=== PATIENT | female | born 1990 | race Caucasian/White ===

== ENCOUNTER 2021-11-20 06:58 | Inpatient (IN) | payer MEDICAID ==
[~2021-11-20] VITALS: Ht 160 cm; Wt 72.6 kg
[2021-11-20] MEDS ORDERED: METHYLERGONOVINE MALEATE 0.2 MG/ML AMP IM PRN ×2 (07:30→08:45)
[2021-11-20] MEDS ORDERED: WITCH HAZEL-GLYCERIN PAD TOP PRN (07:30)
[2021-11-20] MEDS ORDERED: miSOPROStol 100 mcg TAB PR PRN ×2 (07:30→08:45)
[2021-11-20] MEDS ORDERED: LIDOCAINE 2%HCL (LOCAL ANESTH.) INJ 10ml MDV IJ PRN (07:30)
[2021-11-20] MEDS ORDERED: DERMOPLAST 60ML BOTTLE TOP PRN (07:30)
[2021-11-20] MEDS ORDERED: LACTATED RINGER'S 1,000 ML IV SCH (07:30)
[2021-11-20] MEDS ORDERED: miSOPROStol 100 mcg TAB SL PRN ×2 (07:30→08:45)
[2021-11-20 08:33] LABS: Basophils # (auto) 0.1 10 ^3/uL (0-0.2); Eosinophils # (auto) 0 10 ^3/uL (0-0.8)
[2021-11-20 08:35] LABS: Basophils % (auto) 0.3 % (0.0-2.0); Eosinophils % (auto) 0.3 % (0.0-7.0); Hematocrit 30.6 % (36.0-46.0); Hemoglobin 9.7 g/dL (12.2-16.2); Lymphocytes # (auto) 1.9 10 ^3/uL (0.4-5.4); Lymphocytes % (auto) 10.2 % (10.0-50.0); Mean Corpuscular Hemoglobin 26.6 pg (28.0-32.0); Mean Corpuscular Hgb Conc. 31.5 g/dL (32.0-36.0); Mean Corpuscular Volume 84.5 fL (80.0-100.0); Monocytes % (auto) 5.6 % (0.0-12.0); Neutrophils # (auto) 15.5 10 ^3/uL (1.6-8.6); Neutrophils % (auto) 83.6 % (37.0-80.0); Red Blood Cells 3.63 10^6/uL (4.0-5.20); Red Cell Distribution Width 15.7 % (11.8-14.3); White Blood Cell 18.5 10^3/uL (4.4-10.8)
[2021-11-20] MEDS ORDERED: LACT. RINGERS/OXYTOCIN 20UNITS 500 ML IV ONE ×2 (08:45→09:15)
[2021-11-20] MEDS ORDERED: ceFAZolin 2 GM in D5W 5% 100 ML IV ONE (08:45)
[2021-11-20] MEDS ORDERED: METHYLERGONOVINE MALEATE 0.2 MG/ML AMP IM ONE (08:45)
[2021-11-20] MEDS ORDERED: ACETAMINOPHEN 325 MG TAB PO PRN (08:45)
[2021-11-20] MEDS ORDERED: ONDANSETRON ODT 4 MG TAB PO PRN (08:45)
[2021-11-20] MEDS ORDERED: ONDANSETRON HCL 4 MG/2 ML VIAL IV PRN (08:45)
[2021-11-20 08:46] LABS: INR 0.98 (0.9-1.15); Partial Thromboplastin Time 21.4 sec (24.6-33.4)
[2021-11-20 08:50] LABS: Albumin 2.4 g/dL (3.4-5.0); Calcium 8.2 mg/dL (8.5-10.1); Potassium 3.8 mmol/L (3.5-5.1)
[2021-11-20 08:53] LABS: BUN/Creatinine Ratio 10.4; Bilirubin, Total 0.3 mg/dL (0.2-1.0)
[2021-11-20 09:00] VITALS: BP 139/90
[2021-11-20] MEDS: PHISODERM TOP SOLN 240ML BTL TOP PRN (09:11)
[2021-11-20 10:00] VITALS: BP 128/57
[2021-11-20] MEDS ORDERED: SODIUM CHL 0.9% 1000 ML BAG IV SCH (10:00)
[2021-11-20] MEDS ORDERED: LACT. RINGER'S W OXYTOCIN 20UNITS/1000 ML IV SCH (10:00)
[2021-11-20] MEDS: DOCUSATE CALCIUM 240 MG CAP PO SCH (10:08)
[2021-11-20] MEDS: IBUPROFEN 600 MG TAB PO PRN ×2 (10:08→21:02)
[2021-11-20] MEDS: ceFAZolin 1GM/50ML 50 ML IV SCH ×2 (13:38→21:45)
[2021-11-20 14:08] LABS: Urine Bacteria FEW /hpf (None Seen); Urine Blood 3+ /uL (Negative); Urine Mucus FEW (None Seen); Urine Specific Gravity 1.022 (1.001-1.035); Urine WBC 9 /hpf (0 - 5)
[2021-11-20 14:21] LABS: Amphetamine Screen, Urine NEGATIVE (NEGATIVE); Barbiturate Scree,Urine NEGATIVE (NEGATIVE); Benzodiazephine Screen, Urine NEGATIVE (NEGATIVE); Cannabinoid Screen, Urine POSITIVE (NEGATIVE); Cocaine Screen, Urine NEGATIVE (NEGATIVE); Opiate Scree,Urine NEGATIVE (NEGATIVE); Phencyclidine Screen, Urine NEGATIVE (NEGATIVE)
[2021-11-20] MEDS: ACETAMINOPHEN 325 MG TAB PO PRN ×2 (14:56→21:49)
[2021-11-20 15:00] VITALS: BP 121/83
[2021-11-20 19:30] VITALS: BP 115/83
[2021-11-20] MEDS: DOCUSATE SOD 100 MG CAP PO SCH (21:46)
[2021-11-20 22:30] VITALS: BP 97/55
[2021-11-21 03:00] VITALS: BP 117/64
[2021-11-21 06:30] VITALS: BP 111/65
[2021-11-21 07:07] LABS: RPR Non Reactive (Non Reactive); Rubella Antibodies, IgG 5.13 index (Immune >0.99)
[2021-11-21] MEDS: IBUPROFEN 600 MG TAB PO PRN (07:32)
[2021-11-21] MEDS: DOCUSATE CALCIUM 240 MG CAP PO SCH (07:33)
[2021-11-21] MEDS: ceFAZolin 1GM/50ML 50 ML IV SCH (07:33)
[2021-11-21 08:27] LABS: Basophils # (auto) 0 10 ^3/uL (0-0.2); Basophils % (auto) 0.3 % (0.0-2.0); Eosinophils # (auto) 0.1 10 ^3/uL (0-0.8); Eosinophils % (auto) 0.7 % (0.0-7.0); Hematocrit 21.7 % (36.0-46.0); Hemoglobin 7.2 g/dL (12.2-16.2); Lymphocytes # (auto) 1.9 10 ^3/uL (0.4-5.4); Mean Corpuscular Hemoglobin 27.1 pg (28.0-32.0); Monocytes # (auto) 0.9 10 ^3/uL (0-1.3); Red Blood Cells 2.64 10^6/uL (4.0-5.20)
[2021-11-21 08:29] LABS: Lymphocytes % (auto) 21.3 % (10.0-50.0); Mean Corpuscular Hgb Conc. 33.1 g/dL (32.0-36.0); Monocytes % (auto) 10.1 % (0.0-12.0); Neutrophils % (auto) 67.6 % (37.0-80.0); Red Cell Distribution Width 15.5 % (11.8-14.3); White Blood Cell 8.9 10^3/uL (4.4-10.8)
[2021-11-21] MEDS: FERROUS SULFATE 325mg EC TAB PO SCH ×2 (08:33→18:30)
[2021-11-21 11:30] VITALS: BP 117/76
[2021-11-21 15:00] VITALS: BP 139/72
[2021-11-21 19:20] VITALS: BP 112/64
[2021-11-21] MEDS ORDERED: diphenhdrAMINE HCL 25 MG CAP PO ONE (19:30)
[2021-11-21] MEDS ORDERED: TEMAZEPAM 15 MG CAP PO ONE ×2 (22:15→22:30)
[2021-11-21] MEDS: DOCUSATE SOD 100 MG CAP PO SCH (22:36)
[2021-11-21 23:20] VITALS: BP 108/61
[2021-11-22 03:10] VITALS: BP 94/46
[2021-11-22] MEDS ORDERED: IBU600T PO (06:30)
[2021-11-22] MEDS ORDERED: CITA-77 PO (06:30)
[2021-11-22] MEDS ORDERED: FER325T PO (06:30)
[2021-11-22] MEDS ORDERED: DOCU100C10 PO (06:30)
[2021-11-22 06:48] VITALS: BP 98/58
[2021-11-22] MEDS: FERROUS SULFATE 325mg EC TAB PO SCH (07:43)
[2021-11-22] MEDS: PHISODERM TOP SOLN 240ML BTL TOP PRN (07:43)
[2021-11-22] MEDS ORDERED: CITALOPRAM HYDROBR 20 MG TAB PO SCH (10:00)
[2021-11-22 11:00] VITALS: BP 101/58
[2021-11-22 15:00] VITALS: BP 101/60
[2021-11-22] MEDS: IBUPROFEN 600 MG TAB PO PRN (18:00)
[2021-11-22 18:56] VITALS: BP 140/76
== END 2021-11-22 20:01 | disposition home or self-care (01) | DRG 561 ==
LOC: LDRP 06:58
PROVIDERS: ADMIT Obstetrics & Gynecology; ATTEND Obstetrics & Gynecology
PROC: 0UQMXZZ Repair Vulva, External Approach (ICD-10-PCS; principal; 2021-11-20)
DX: O71.82 Other specified trauma to perineum and vulva (principal); F33.2 Major depressive disorder, recurrent severe without psychotic features; Z20.822 Contact with and (suspected) exposure to COVID-19; O90.81 Anemia of the puerperium; O99.324 Drug use complicating childbirth; O99.344 Other mental disorders complicating childbirth; F12.10 Cannabis abuse, uncomplicated
CPT/HCPCS: 36415; 80053; 80307; 81001; 85025; 85610; 85730; 86592; 86703; 86762; 86850; 86900; 86901; 87340; 87426; 94760; 96365; 96366; 96372; G0378; J0690; J7060